=== PATIENT | female | born 1940 | race American Indian/Alaskan Native ===

== ENCOUNTER 2018-11-23 13:37 | Outpatient (CLI) | payer MEDICARE | END 2018-11-23 13:38 | disposition home or self-care (01) | LOC: RAD 13:37 ==

== ENCOUNTER 2019-01-14 17:42 | Observation (INO) | payer MEDICARE, MEDICAID ==
[2019-01-14 19:31] LABS: BASO # 0.02 K/mm3 (0.0-2.0); BASO % 0.3 % (0.0-3.0); EOS # 0.2 (0.0-0.7); LYMPH # 2.1 (1.2-3.4); LYMPH % 37.1 % (22.0-35.0); MEAN CELL VOLUME 89.3 fl (80.0-105.0); MEAN CORPUSCULAR HEMOGLOBIN 28.1 pg (25.0-35.0); MEAN CORPUSCULAR HGB CONC 31.4 g/dl (31.0-37.0); MEAN PLATELET VOLUME 9.5 fl (7.0-11.0); MONO # 0.6 (0.1-0.6); MONO % 9.8 % (1.0-6.0); RBC 3.92 10^6/uL (3.5-6.1); RED CELL DISTRIBUTION WIDTH 15.2 % (11.5-14.5); WHITE BLOOD COUNT 5.7 10^3/uL (4.5-11.0)
--- NOTE | 2019-01-14 19:35 | ED PDOC ---
Arrival/HPI - General Chief Complaint: Shortness Of Breath Time Seen by Provider: 01/14/19 18:13 Historian: Patient - History of Present Illness Narrative History of Present Illness (Text): 01/14/19 19:31 78yr old female presents today sent in by the primary care physician for evaluation of chest pain and shortness of breath. Patient with a history of CHF and CAD on Coumadin presents today with chest pain that developed last night. Patient also complaining of shortness of breath and dyspnea on exertion. She denies any chest pain or shortness of breath at present time but states she has had continued increasing dyspnea on exertion. Patient denies fevers or chills. No cough. No abdominal pain. No nausea vomiting diarrhea or constipation. No other complaints Past Medical History - Provider Review Nursing Documentation Reviewed: Yes Primary Care Provider: Brianna Jj - Travel History Have you recently traveled outside [place] w/in the past 3 mons?: No - Cardiac Hx Cardiac Disorders: Yes Hx Congestive Heart Failure: Yes Hx Hypertension: Yes Hx Pacemaker: Yes - Pulmonary Hx Respiratory Disorders: Yes Hx Chronic Obstructive Pulmonary Disease (COPD): Yes Hx Pulmonary Embolism: Yes - Neurological Hx Neurological Disorder: No - HEENT Hx HEENT Disorder: No - Renal Hx Renal Disorder: No - Endocrine/Metabolic Hx Endocrine Disorders: No - Hematological/Oncological Hx Blood Disorders: No - Integumentary Hx Dermatological Disorder: No - Musculoskeletal/Rheumatological Hx Musculoskeletal Disorders: No - Gastrointestinal Hx Gastrointestinal Disorders: No - Genitourinary/Gynecological Hx Genitourinary Disorders: No - Psychiatric Hx Psychophysiologic Disorder: No Hx Substance Use: No - Surgical History Other/Comment: pacemaker/defib, ectopic Family/Social History - Physician Review Nursing Documentation Reviewed: Yes Family/Social History: Unknown Family HX Smoking Status: Unknown If Ever Smoked Hx Alcohol Use: No Hx Substance Use: No Allergies/Home Meds Allergies/Adverse Reactions: Allergies latex Allergy (Verified 01/14/19 18:23) ITCHING Review of Systems - Review of Systems Constitutional: absent: Fatigue, Fevers Respiratory: SOB (non currently). absent: Cough Cardiovascular: Chest Pain (none currently). absent: Palpitations Gastrointestinal: absent: Abdominal Pain, Nausea, Vomiting Genitourinary Female: absent: Dysuria, Frequency, Hematuria Musculoskeletal: Arthralgias Skin: absent: Rash, Pruritis Neurological: absent: Headache, Dizziness Psychiatric: absent: Anxiety, Depression, Suicidal Ideation Physical Exam Vital Signs Reviewed: Yes Vital Signs Temp Pulse Resp BP Pulse Ox 01/14/19 19:18 19 01/14/19 17:47 98.4 F 81 18 152/87 H 98 Temperature: Afebrile Blood Pressure: Hypertensive Pulse: Regular Respiratory Rate: Normal Appearance: Positive for: Well-Appearing, Non-Toxic, Comfortable Pain Distress: None Mental Status: Positive for: Alert and Oriented X 3 - Systems Exam Head: Present: Atraumatic Mouth: Present: Moist Mucous Membranes Neck: Present: Normal Range of Motion Respiratory/Chest: Present: Clear to Auscultation, Good Air Exchange. No: Respiratory Distress, Accessory Muscle Use Cardiovascular: Present: Regular Rate and Rhythm, Normal S1, S2. No: Murmurs Abdomen: No: Tenderness, Distention, Rebound, Guarding Back: Present: Normal Inspection Upper Extremity: Present: Normal ROM Lower Extremity: Present: Normal ROM. No: Edema Neurological: Present: GCS=15, Speech Normal Skin: Present: Warm, Dry, Normal Color. No: Rashes Psychiatric: Present: Alert, Oriented x 3 Medical Decision Making ED Course and Treatment: 01/14/19 19:36 Pt with chest pain last night. Dyspnea on exertion. Denies shortness of breath or CP at present time cbc; wnl cmp; wnl INR; 2.44 trop: wnl BnP: wnl ekg; NSR at 64b/m no st elevations, normal intervals. cxr within normal limits case discussed with Dr. jj: will Admit observational status to Tele for chest pain r/o acs. consult dr. sena impression; chest pain, OLVERA Admit observational status to tele - RAD Interpretation Radiology Orders: 01/14/19 18:37 CHEST PORTABLE [RAD] Stat Disposition/Present on Arrival - Present on Arrival Any Indicators Present on Arrival: No History of DVT/PE: No History of Uncontrolled Diabetes: No Urinary Catheter: No History of Decub. Ulcer: No History Surgical Site Infection Following: None - Disposition Have Diagnosis and Disposition been Completed?: Yes Diagnosis: Chest pain, OLVERA (dyspnea on exertion) Disposition: HOSPITALIZED Disposition Time: 19:40 Patient Plan: Observation Patient Problems: Current Active Problems Problem Status Onset Chest pain Acute OLVERA (dyspnea on exertion) Acute Condition: FAIR Discharge Instructions (ExitCare): Chest Pain (ED) Forms: [employer] ([place]ian)
[2019-01-14 19:41] LABS: ALB/GLOB RATIO 1.2 (1.1-1.8); ALBUMIN 4.1 g/dL (3.0-4.8); BLOOD UREA NITROGEN 13 mg/dL (7-21); CALCIUM 10.3 mg/dL (8.4-10.5); GFR NON-AFRICAN AMERICAN > 60; INR 2.44; PROTHROMBIN TIME 27.1 SECONDS (9.4-12.5)
[2019-01-14 19:46] LABS: ALT/SGPT 38 U/L (7-56); AST/SGOT 41 U/L (14-36)
[2019-01-14 19:53] LABS: B-TYPE NATRIURETIC PEPTIDE 273 pg/mL (0-450); TROPONIN I < 0.01 ng/mL
[2019-01-14 21:43] LABS: URINE BILIRUBIN NEGATIVE (NEGATIVE); URINE BLOOD NEGATIVE (NEGATIVE); URINE GLUCOSE (UA) NEGATIVE (NEGATIVE); URINE LEUKOCYTE ESTERASE SMALL Leu/uL (NEGATIVE); URINE PROTEIN NEGATIVE mg/dL (<30 mg/dL); URINE UROBILINOGEN 0.2 E.U./dL (<1 E.U./dL)
[2019-01-14 21:44] LABS: URINE APPEARANCE CLEAR (CLEAR); URINE COLOR YELLOW (YELLOW)
[2019-01-14 21:50] LABS: URINE EPITHELIAL CELLS 0 - 2 /hpf (0-5); URINE WBC 0 - 2 /hpf (0-6)
[2019-01-14 22:28] VITALS: BMI 25.0
[2019-01-15 07:41] LABS: ALB/GLOB RATIO 1.2 (1.1-1.8); ALBUMIN 3.4 g/dL (3.0-4.8); ALT/SGPT 38 U/L (7-56); AST/SGOT 41 U/L (14-36); BLOOD UREA NITROGEN 14 mg/dL (7-21); CALCIUM 9.9 mg/dL (8.4-10.5); GFR NON-AFRICAN AMERICAN > 60
[2019-01-15 07:49] LABS: TROPONIN I < 0.01 ng/mL
[2019-01-15] MEDS ORDERED: Potassium Chloride 20 mEq ER Tab PO ONE (08:10)
--- NOTE | 2019-01-15 09:17 | RAD ---
Date of service: 01/14/2019 HISTORY: cp/sob/ hx of chf COMPARISON: No prior. TECHNIQUE: 1 view obtained. FINDINGS: LUNGS: No active pulmonary disease. PLEURA: No significant pleural effusion identified, no pneumothorax apparent. CARDIOVASCULAR: Aortic calcification Normal cardiac size. No pulmonary vascular congestion. OSSEOUS STRUCTURES: No significant abnormalities. VISUALIZED UPPER ABDOMEN: Normal. OTHER FINDINGS: Single lead pacemaker IMPRESSION: No active disease.
[2019-01-15] MEDS: Potassium Chloride 10 mEq ER Tab PO SCH (09:24)
[2019-01-15] MEDS: Metoprolol Succinate 25 mg XL Tab PO SCH (09:25)
--- NOTE | 2019-01-15 11:54 | CARD ---
APPROVED REPORT Date of service: 01/14/2019 EKG Measurement Heart [id number] <Conclusion> Normal sinus rhythm Minimal voltage criteria for LVH, may be normal variant Borderline ECG
[2019-01-15 13:16] LABS: INR 2.08; PROTHROMBIN TIME 23.5 SECONDS (9.4-12.5)
[2019-01-15 13:21] LABS: HDL CHOLESTEROL 61 mg/dL (29-60)
[2019-01-15 13:32] LABS: LDL CHOLESTEROL 61 mg/dL (0-129)
[2019-01-15 13:51] LABS: IRON 59 ug/dL (45-180)
[2019-01-15 14:00] LABS: % IRON SATURATION 21 % (20-55); TOTAL IRON BINDING CAPACITY 280 ug/dL (265-497)
--- NOTE | 2019-01-15 16:51 | CON ---
DATE: 01/15/2019 CONSULT SERVICE: Cardiology. REASON FOR CONSULTATION: Chest pain, status post AICD, nonischemic cardiomyopathy and status post AICD. BRIEF CLINICAL HISTORY: This is a 78-year-old female with past medical history significant for nonischemic cardiomyopathy, being followed by Dr. Monteiro status post AICD, who has year ago cardiac catheterization,nonobstructive coronary artery, status post cardiac catheterization year ago. Had a cardiac catheterization a year ago, normal and history of recent stress test a week ago, it was normal, admitted with the chest was atypical. PAST MEDICAL HISTORY: As mentioned, history of significant for CHF and cardiomyopathy, nonischemic. Past history significant for nonobstructive coronary artery disease, status post cardiac as mentioned history of stress test recently negative and history of AICD. SOCIAL HISTORY: Denies history of smoking, quit many years ago and history of alcohol abuse in the past. CURRENT MEDICATION: The patient at home was taking amlodipine 10 mg daily, Coumadin, Singulair, metoprolol, losartan, Cetirizine and atorvastatin. REVIEW OF SYSTEMS: As per HPI. PHYSICAL EXAMINATION: GENERAL: Height of the patient 5 feet 4 inches. Weight of the patient 146 pounds. Body mass index 25.1 kg/m2. VITAL SIGNS: Temperature afebrile. Heart rate 72 and blood pressure 110/69. HEENT: PERRLA intact. NECK: Supple. No carotid bruits. No thyromegaly. CHEST: Clear to auscultation. HEART: S1 and S2, regular. ABDOMEN: Soft. EXTREMITIES: Clubbing and cyanosis, negative. LABORATORY DATA: WBC 5.7, hemoglobin 11, hematocrit 35.0 and platelet count 221. Chemistry shows sodium 140, potassium 3.0, chloride 109, carbon dioxide 28, anion gap of 10, BUN 40, creatinine 0.7 and INR 2.44. EKG shows normal sinus. IMPRESSION: A 78-year-old female with past medical history significant for nonobstructive cardiomyopathy, status post automatic implantable cardioverter-defibrillator being followed by Dr. Monteiro came with chest was atypical, history of cardiac catheterization a year ago normal, history of stress test a week ago by Dr. Monteiro, was normal. RECOMMENDATIONS: We will resume that medication. We will give set of troponin, troponin remains negative. We will discontinue telemetry. Further recommendation was hospital course. Upon discharge, the patient will be followed by Dr. Monteiro for atypical chest pain. No further cardiac workup is planned at this time or warranted. Thank you Dr. Jj for providing us the opportunity in taking care of the patient, Pooja Sanderson. Saba Rosario MD
[2019-01-15 17:36] LABS: FOLATE > 20.0 ng/mL
--- NOTE | 2019-01-15 18:43 | HP ---
DATE OF EXAM: 01/15/2019 The patient was seen and examined at the bedside on 01/15/2019. CHIEF COMPLAINT: Shortness of breath and chest pain. HISTORY OF PRESENT ILLNESS: Ms. Pooja Sanderson is a 78-year-old female with a past medical history of congestive heart failure, coronary artery disease, dilated cardiomyopathy. She is on Coumadin. Came in my office with chest pain and shortness of breath, I sent her to the hospital. The patient also is complaining of dyspnea on exertion. The patient denies fever or chills. No cough. No abdominal pain. No nausea, vomiting or diarrhea. No constipation. Actually the patient was seen by the food preparer as outpatient. Even though the food preparer just did workup, but still the patient has chest pain. PAST MEDICAL HISTORY: As above. The patient has congestive heart failure, hypertension, pacemaker, COPD, respiratory disorder, a history of pulmonary embolism, and history of pacemaker defibrillator, ectopic. FAMILY HISTORY: Father and mother noncontributory. HABITS: No smoking. No drugs. No ethanol. ALLERGIES: THE PATIENT IS ALLERGIC TO THE LATEX. REVIEW OF SYSTEMS: The patient was seen and examined at the bedside in her room, still complains about chest pain and shortness of breath. No fever. No chills. No hematuria. No hematochezia. No headache or dizziness. Does not look like toxic. PHYSICAL EXAMINATION: VITAL SIGNS: Temperature 98.4, pulse 81, respiratory rate 18, blood pressure 152/87 and pulse oxymetry 98%. HEENT: Head; normocephalic and atraumatic. Eyes; PERRLA. Extraocular muscles intact. Conjunctiva clear. Nose patent. NECK: Supple. No carotid bruits. No JVD or thyromegaly. CHEST: Bilaterally symmetrical. HEART: S1 and S2, positive. LUNGS: Clear to auscultation. ABDOMEN: Soft. Bowel sounds present. No organomegaly. EXTREMITIES: No edema. No cyanosis. NEUROLOGIC: The patient is awake and alert. Moving all four extremities. LABORATORY DATA: White blood cells 5.7, hemoglobin 11, hematocrit 35 and platelets 221. Sodium 145, potassium 3.4, BUN 14, creatinine 0.7 and AST 41. ASSESSMENT AND PLAN: Ms. Pooja Sanderson is a 78-year-old lady with anemia, hyperchloremia, abnormal liver function test, urinary tract infection with past medical history of hypertension, congestive heart failure, coronary artery disease, dilated cardiomyopathy, history of pulmonary embolism, is on Coumadin, came with dyspnea. We admitted the patient and called Cardiology. Actually cardiac workup was done as outpatient, but still the patient is having dyspnea. We will call Pulmonary. Gastrointestinal and deep venous thrombosis prophylaxis. Repeat labs. We will give some physical therapy. We will follow. Brianna Jj MD
[2019-01-15] MEDS ORDERED: CETIRIZINE HCL 10 MG PO SCH (22:00)
--- NOTE | 2019-01-16 01:21 | CON ---
DATE: 01/15/2019 PULMONARY CONSULTATION REFERRING PHYSICIAN: Dr. Jj. REASON FOR CONSULTATION: Cough, shortness of breath. HISTORY OF PRESENT ILLNESS: This is a 78-year-old female with past medical history significant for cardiomyopathy, has an AICD, who comes in to the ER because of recurrent nocturnal chest pain, presently sitting up in the bed. She also claims she has a masseter reflex, admits to have loud snoring during the night, not much sleepy during the day though. No nausea, no vomiting, no diarrhea, no leg pain, or leg swelling. PAST MEDICAL HISTORY: Nonobstructive cardiomyopathy, history of GERD. SOCIAL HISTORY: Denies any smoking or alcohol use. FAMILY HISTORY: No significant cardiopulmonary disease reported. MEDICATIONS: She is on Coumadin 5 mg daily, Cozaar 100 mg daily, potassium supplement, Lipitor 40 mg daily, Toprol XL 25 mg daily. ALLERGIES: LATEX. REVIEW OF SYSTEMS: No headache, no rhinitis; nocturnal chest pain, shortness of breath with exertion, admitted with GERD. No nausea, no dysuria, no leg pain or leg swelling. PHYSICAL EXAMINATION: GENERAL: No acute distress. VITAL SIGNS: Temperature is 98, heart rate 70, respiratory rate is 18, blood pressure 109/70, pulse oximetry of 95% on room air. HEENT: Moist mucous membranes. No ulcer or thrush noted. NECK: Supple. No JVD. LUNGS: Have a fair airflow with rhonchi. HEART: S1, S2. ABDOMEN: Soft, nontender, no organomegaly. EXTREMITIES: No edema. NEUROLOGIC: Awake and alert, follows simple commands. LABORATORY DATA: Shows hemoglobin 11, hematocrit 35, WBC 5.7, platelets are 221, INR 2.08. Sodium 145, potassium 2.7, chloride 109, bicarbonate 28, BUN 14, creatinine 0.7, hemoglobin A1c 6, calcium 9.9. Iron is 59, AST 41, ALT 38, alk phos is 112. Albumin is 3.4. Cholesterol is 156, vitamin B12 of 506, folate is more than 20. Chest x-ray was done today, shows no infiltrate or effusion. An EKG done in the ER, which shows normal sinus rhythm, normal voltage criteria for LVH. IMPRESSION AND PLAN: Cardiomyopathy. She has an automatic implantable cardioverter defibrillator, history of gastroesophageal reflux disease, suspected sleep apnea syndrome. The patient will be seen by Cardiology; from a pulmonary point of view, doing okay. We will suggest getting sleep study upon discharge as outpatient to ensure there is no sleep apnea contributing to her cardiomyopathy. Gastric prophylaxis. Continue anticoagulation. Cardiac workup. Thank you and we will follow with you. Saba Richardson MD
[2019-01-16] MEDS: Pantoprazole 40 mg EC Tab PO SCH (06:35)
[2019-01-16 07:47] LABS: HEMOGLOBIN 10.2 g/dL (12.0-16.0); MEAN CELL VOLUME 88.7 fl (80.0-105.0); MEAN CORPUSCULAR HGB CONC 31.6 g/dl (31.0-37.0); MEAN PLATELET VOLUME 9.4 fl (7.0-11.0); RBC 3.64 10^6/uL (3.5-6.1); WHITE BLOOD COUNT 4.5 10^3/uL (4.5-11.0)
[2019-01-16 07:51] LABS: INR 2.35; PROTHROMBIN TIME 26.5 SECONDS (9.4-12.5)
[2019-01-16 08:00] LABS: BLOOD UREA NITROGEN 14 mg/dL (7-21); CALCIUM 9.8 mg/dL (8.4-10.5); GFR NON-AFRICAN AMERICAN > 60
[2019-01-16] MEDS: Metoprolol Succinate 25 mg XL Tab PO SCH (09:50)
[2019-01-16] MEDS ORDERED: Albuterol-Ipratrop 3 mg / 0.5 (3 ml) UD IH PRN (09:54)
[2019-01-16] MEDS: Potassium Chloride 10 mEq ER Tab PO SCH (09:56)
--- NOTE | 2019-01-16 10:57 | PN ---
DATE: 01/16/2019 PULMONARY PROGRESS NOTE REFERRING PHYSICIAN: Brianna Jj MD. SUBJECTIVE: The patient is seen sitting in chair in room. No acute distress. No overnight events reported. The patient reports that she is having a little shortness of breath with exertion, but it is better than before. States that she does have occasional nonproductive cough. No headache, rhinitis, chest pain, abdominal pain, nausea, vomiting, diarrhea, leg pain, or leg swelling reported. OBJECTIVE: VITAL SIGNS: Blood pressure 102/54, pulse 56, temperature 98.6, oxygen saturation 100% on room air. GENERAL: In no acute distress. HEENT: Moist mucous membranes. NECK: Supple. No JVD. LUNGS: Fair airflow bilaterally. CARDIOVASCULAR: S1 and S2. ABDOMEN: Soft and nontender. No distention. No organomegaly. EXTREMITIES: No bilateral lower extremity edema. NEUROLOGIC: Awake, alert and verbal. Following commands. MEDICATIONS: Reviewed. Lipitor 40 mg daily, ergocalciferol 50,000 units weekly, Claritin 10 mg daily, Cozaar 100 mg daily, metoprolol succinate 25 mg daily, Singulair 10 mg daily, Protonix 40 mg daily, potassium chloride 10 mEq daily, Coumadin 5 mg daily. LABORATORY DATA: Reviewed. WBC 4.5, RBC 3.64, hemoglobin 10.2, hematocrit 32.3, platelets 192. PT 26.5, INR 2.35. Sodium 144, potassium 3.9, chloride 110, carbon dioxide 30, anion gap 8, BUN 14, creatinine 0.7, GFR greater than 60, random glucose 88, calcium 9.8, TSH 1.71. IMPRESSION AND PLAN: Cardiomyopathy, automatic implantable cardioverter-defibrillator placement, history of gastroesophageal reflux disease, suspected sleep apnea syndrome. Continue cardiac workup. If cardiac workup is negative, the patient can be discharged this patient. We recommend the patient to have sleep study upon discharge as outpatient to ensure that sleep apnea is not contributing to the patient's cardiomyopathy. Gastric prophylaxis. gastroesophageal reflux disease precautions. The patient is on anticoagulation therapy. Fall precautions. The patient was seen and examined with Dr. Richardson. Discussed assessment and plan as described above. The patient was seen and examined with Luna Han Nurse Practitioner. Discussed assessment and plan as described above. Thank you for this consult. We will follow with you. Luna Han APN Saba Richardson MD [facility] # [id number]
--- NOTE | 2019-01-16 21:11 | PN ---
DATE: 01/16/2019 SUBJECTIVE: The patient was seen and examined at the bedside on 01/16/2019, looking comfortable. No fevers. No chills. No hematuria. No hematochezia. No headache or dizziness. No chest pain. No palpitations. PHYSICAL EXAMINATION: VITAL SIGNS: Blood pressure 102/54, pulse 59, temperature 98.6, oxygen saturation 100% on room air. HEENT: Head; normocephalic and atraumatic. Eyes; PERRLA. Extraocular muscles intact. Conjunctiva clear. Nose patent. Mucous membranes moist. NECK: Supple. No carotid bruits. No JVD or thyromegaly. CHEST: Bilaterally symmetrical. HEART: S1 and S2, positive. LUNGS: Clear to auscultation. ABDOMEN: Soft. Bowel sounds present. No organomegaly. EXTREMITIES: No edema. No cyanosis. NEUROLOGIC: The patient is awake and alert. Moving all four extremities. No focal deficits. MEDICATIONS: Lipitor, vitamin D, Claritin, Cozaar, Singulair, Protonix, potassium, Coumadin, LABORATORY DATA: White blood cells 4.5, hemoglobin 10.2, hematocrit 32.3, and platelets 192. Sodium 144, potassium 3.9, carbon dioxide 30, BUN 14, creatinine 0.7, TSH 1.71. ASSESSMENT AND PLAN: Ms. Pooja Sanderson is a 78-year-old lady with cardiomyopathy automatic implantable cardioverter-defibrillator placement, history of gastroesophageal reflux disease, suspected sleep apnea syndrome, history of congestive heart failure. Patient is seen by ccu nurse and perch mender. Gastrointestinal and deep venous thrombosis prophylaxis. Repeat labs. We will follow up. Brianna Jj MD
[2019-01-17] MEDS: Pantoprazole 40 mg EC Tab PO SCH (05:11)
[2019-01-17 07:51] LABS: HEMOGLOBIN 9.9 g/dL (12.0-16.0); MEAN CELL VOLUME 89.2 fl (80.0-105.0); MEAN CORPUSCULAR HEMOGLOBIN 28.2 pg (25.0-35.0); MEAN CORPUSCULAR HGB CONC 31.6 g/dl (31.0-37.0); MEAN PLATELET VOLUME 9.9 fl (7.0-11.0); RBC 3.51 10^6/uL (3.5-6.1); RED CELL DISTRIBUTION WIDTH 15.2 % (11.5-14.5); WHITE BLOOD COUNT 4.8 10^3/uL (4.5-11.0)
[2019-01-17 08:12] LABS: BLOOD UREA NITROGEN 21 mg/dL (7-21); CALCIUM 9.6 mg/dL (8.4-10.5); GFR NON-AFRICAN AMERICAN > 60
[2019-01-17] MEDS: Metoprolol Succinate 25 mg XL Tab PO SCH (09:21)
[2019-01-17] MEDS: Potassium Chloride 10 mEq ER Tab PO SCH (09:21)
[2019-01-17 09:22] VITALS: BP 102/60
[2019-01-17] MEDS ORDERED: Ergocalciferol 50,000 Intl Units Cap PO SCH (10:00)
--- NOTE | 2019-01-17 12:04 | CT ---
Date of service: 01/17/2019 PROCEDURE: CT Chest without contrast HISTORY: r/o tumor/mass COMPARISON: None available. TECHNIQUE: Contiguous axial images were obtained through the chest without intravenous contrast enhancement. Sagittal and coronal reconstructions were performed. Radiation dose: Total exam DLP = 215.94 mGy-cm. This CT exam was performed using one or more of the following dose reduction techniques: Automated exposure control, adjustment of the mA and/or kV according to patient size, and/or use of iterative reconstruction technique. FINDINGS: LUNGS: Clear lungs. Visualized airway clear MEDIASTINUM: Unremarkable thoracic aorta. No aneurysm. Normal sized heart. Main pulmonary artery unremarkable. No vascular congestion. No lymphadenopathy. Aortic calcification PLEURA: No pleural fluid. No pneumothorax. BONES: No fracture. No destructive lesion. UPPER ABDOMEN: Grossly unremarkable. OTHER FINDINGS: None. IMPRESSION: Unremarkable non-contrast enhanced CT of the chest.
--- NOTE | 2019-01-17 13:01 | PN ---
DATE: 01/17/2019 PULMONARY PROGRESS NOTE REFERRING PHYSICIAN: Brianna Jj MD. SUBJECTIVE: The patient is seen lying in bed this morning, asleep, easily arousable. No acute distress. Reports having some shortness of breath with exertion, but it has improved. No coughing. No headache, rhinitis, chest pain, abdominal pain, nausea, vomiting, diarrhea, leg pain, or leg swelling reported. The patient does report that she has a history of lung cancer, states that she has surgery with a tumor or mass was removed. The patient, it feels may be a poor historian. OBJECTIVE: GENERAL: No acute distress. VITAL SIGNS: Blood pressure 102/60, pulse 60, temperature 98.1, oxygen saturation 94% on room air. HEENT: Moist mucous membranes. NECK: Supple. No JVD. LUNGS: Fair airflow bilaterally. CARDIOVASCULAR: S1 and S2. ABDOMEN: Soft and nontender. No distention. No organomegaly. EXTREMITIES: No bilateral lower extremity edema. NEUROLOGIC: Awake, alert and verbal. Following commands. MEDICATIONS: Reviewed. DuoNeb 3 mL inhalation every 6 hours p.r.n., Lipitor 40 mg at dinner, ergocalciferol 50,000 units weekly, Claritin 10 mg daily, Cozaar 100 mg daily, metoprolol succinate 25 mg daily, Singulair 10 mg daily, Protonix 40 mg daily, potassium chloride 10 mEq daily, Coumadin 5 mg daily. LABORATORY DATA: Reviewed. WBC 4.8, RBC 3.51, hemoglobin 9.9, hematocrit 31.3 and platelets 206. Sodium 142, potassium 3.9, chloride 109, carbon dioxide 28, anion gap 9, BUN 21, creatinine 0.8, GFR greater than 60, random glucose 90, calcium 9.6. IMPRESSION AND PLAN: Cardiomyopathy, automatic implantable cardioverter-defibrillator placement, history of gastroesophageal reflux disease, suspected sleep apnea syndrome. We will order CAT scan of the chest without contrast to rule out tumor or mass due to the patient reports that she at one point had tumor or mass removed in her history. Gastric prophylaxis, gastroesophageal reflux disease precautions. The patient is on anticoagulation therapy. Continue as needed inhaled bronchodilators, Cardiology followup. The patient was seen and examined with Dr. Richardson. Discussed assessment and plan as described above. The patient was seen and examined with Luna Han Nurse Practitioner. Discussed assessment and plan as described above. Thank you for this consult and we will follow with you. Luna Han APN Saba Richardson MD
[2019-01-17 16:19] VITALS: PULSE 72; RESP 20; TEMP 98.3; O2SAT 100
== END 2019-01-17 16:58 | disposition home or self-care (01) ==
LOC: ED 17:42 → ERH 19:50 → 2RNO 21:09 → 5RSO 01-15 11:34
PROVIDERS: ADMIT Internal Medicine; ATTEND Internal Medicine
DX: R07.89 Other chest pain (principal); R06.00 Dyspnea, unspecified; I11.0 Hypertensive heart disease with heart failure; I50.9 Heart failure, unspecified; N39.0 Urinary tract infection, site not specified; I42.0 Dilated cardiomyopathy; J44.9 Chronic obstructive pulmonary disease, unspecified; K21.9 Gastro-esophageal reflux disease without esophagitis; D64.9 Anemia, unspecified; I25.10 Atherosclerotic heart disease of native coronary artery without angina pectoris; E87.8 Other disorders of electrolyte and fluid balance, not elsewhere classified; Z79.01 Long term (current) use of anticoagulants; Z86.711 Personal history of pulmonary embolism; Z95.810 Presence of automatic (implantable) cardiac defibrillator; Z85.118 Personal history of other malignant neoplasm of bronchus and lung
CPT/HCPCS: 36415; 71045; 71250; 80048; 80053; 80061; 81001; 82550; 82607; 82746; 83036; 83540; 83550; 83615; 83880; 84443; 84484; 85025; 85027; 85610; 85730; 93005; 99285; G0378